=== PATIENT | male | born 1975 | race Caucasian/White ===

== ENCOUNTER 2018-06-05 09:52 | Outpatient (CLI) | payer BC | END 2018-06-05 09:53 | disposition home or self-care (01) | LOC: LAB.F 09:52 | PROVIDERS: ATTEND Registered Nurse | DX: E83.52 Hypercalcemia (principal) | CPT/HCPCS: 36415; 82310; 83970 ==

== ENCOUNTER 2019-07-23 13:36 | Outpatient (CLI) | payer BC ==
--- NOTE | 2019-07-23 16:51 | SLEEP CARE CONSULTATION ---
Information from patient questionnaire entered by Dilcia Berger. I have reviewed and concur with the information entered by Dilcia Berger. This document represents the service I personally performed and the decisions made by me, Kevin Schmitz MD, [facility]. History of Present Illness Reason for Visit: New patient Chief Complaint: reports: Snoring Duration of Symptoms: 7 months Usual bedtime: 12am Time it takes to fall asleep: 10-20 minutes Snores at night: Yes Observed to quit breathing while asleep: Yes Sleeps alone due to snoring: Yes Number of times waking at night: 0-1 Reasons for waking at night: reports: Bathroom Toss, Turn, or Twitch while sleeping: No Recalls having dreams: Yes Usually gets out of bed at: 0545 Feels refreshed in the morning: No Morning headache: Yes Sleepy or fatigued during the day: Yes Ever fallen asleep while driving: No Takes day naps: Yes Dreams during day naps: No Prior sleep studies: No Additional HPI information: I had the pleasure of seeing Mr. Andrade today regarding the possibility of him having a sleep disorder. As you know, he is a 44 year old gentleman who complains of loud snore for the past 7 months. He tried nasal spray and strip without much success. He has nasal congestion. His weight has not changed. The patient tells me that he normally goes to bed around midnight and it takes him approximately 10 - 20 minutes to fall asleep. He has not been observed to stop breathing in his sleep. His bed partner has to sleep in a separate room. He can recall waking up on the average of 0 - 1 time during the night. Most of the time he wakes up because of having to use the bathroom. However, he has awakened occasionally because of his own snoring, choking, and having to gasp for air. There is not a lot of tossing and turning in his sleep. No somniloquy (sleep talking) or somnambulism (sleep walking). Generally he can recall having dreams. In the morning he usually gets up out of the bed around 5:45 a.m. not feeling refreshed nor rested. He usually does have a morning headache that lasts just an hour. During the day he complains of feeling sleepy and fatigued. His score on [place] Sleepiness Scale is 15 out of 24. He has never fallen asleep while driving nor has had any accident due to sleepiness. He usually takes naps during the day. Upon falling asleep during the day he denies having vivid dreams. He has never had sleep paralysis, experienced cataplexy or symptoms of restless leg syndrome. He reports having impaired concentration during the day. Subjective Initial [place] Sleepiness Scale score: 15 Past Medical History Past Medical History: reports: Anxiety, Asthma, Depression Social History The patient's occupation is a [employer]. Patient is Domestic Partner and lives in [place]. Have you smoked in the past 12 months: No Alcohol use: Yes Alcohol amount and frequency: 1 glass/2 days Caffeine use: Yes Caffeine amount and frequency: 1-2 a day Family History Family history of sleep disordered breathing: Yes Family Hx Sleep Apnea: Grandparent: Snoring Allergies and Home Medications Drug allergies reviewed: Yes Home medication list reviewed: Yes Review of Systems Weight gain over past 5 years: 15 Cardiovascular: denies: high blood pressure, palpitations, chest pain, irregular heart rate or pulse, leg or foot swelling, have to sleep sitting up, other Respiratory: denies: shortness of breath, wheeze, sputum production, chronic cough, other Gastrointestinal: denies: heartburn, difficulty swallowing, nausea, vomitting, diarrhea, abdominal pain, other Urinary: denies: incontinence, frequency, urgency, impotence, other Neurological: reports: headaches Psychiatric: reports: anxiety, depression Ear/Nose/Throat: reports: wisdom teeth removed Endocrine: denies: thyroid disease, history of goiter, sluggishness, too hot or cold, excessive thirst, increased appetite, increased urination, unexplained weakness, other Musculoskeletal: denies: joint pain, neck pain, back pain, joint swelling, muscle pain or cramping, mobility problems, other Immunologic: reports: sneezing, itching, allergies to food or environment Physical Exam Vital signs obtained and entered by: Dr. Schmitz Blood Pressure: 116/64 Cuff size: regular Heart Rate: 67 O2 Saturation: 97 Height: 5 ft 8 in Weight: 165 lb Body Mass Index: 25.0 BMI Classification: Overweight Neck circumference: 15 Mood/affect: normal HEENT: No craniofacial malformation Nostrils: patent to airflow Turbinates: normal Septum: midline Mouth and throat: normal Soft palate: normal Hard palate: normal Uvula: normal Uvula visualization: 100% Mallampati Class I Tongue: normal in size Tonsils: small Chin and jaw: normal size and position Neck: normal w/o lymphadenopathy or thyromegaly Heart: regular rate and rhythm Lungs: clear bilaterally Abdomen: soft, non-tender Extremities: no edema or clubbing Neurologic: intact, no focal deficits Impression and Plan IMPRESSION: 1. Suspected Obstructive Sleep Apnea-Hypopnea Syndrome, as suggested by history of loud and irregular snoring, nocturnal choking, unrefreshed sleep, cognitive impairment, and daytime hypersomnolence. Pathophysiology of sleep-disordered breathing was discussed. I recommend proceeding to polysomnography to confirm the diagnosis and to assess severity. If he has significant sleep disordered breathing, a manual CPAP titration study will also be performed to find the optimal treatment pressure. However, because her insurance being [employer], a home sleep apnea test (HSAT) will be ordered (the insurance does not generally authorize an in-laboratory polysomnography). Plan: 1. Order a HSAT. 2. Avoid long distance driving or when feeling sleepy. 3. Avoid alcohol, sedative and muscle relaxant around bedtime. 4. Return for follow up after the test. I spent 100% of this 20 minute visit face to face with the patient with greater than 50% of this was spent time counseling the patient and coordination of care.
[2019-07-23 16:52] VITALS: BP 116/64
== END 2019-07-23 13:37 | disposition home or self-care (01) ==
LOC: SC 13:36
PROVIDERS: ATTEND Internal Medicine Pulmonary Disease
DX: G47.10 Hypersomnia, unspecified (principal); R06.83 Snoring; G47.8 Other sleep disorders; R41.89 Other symptoms and signs involving cognitive functions and awareness
CPT/HCPCS: 99203; 99212

== ENCOUNTER → 2019-07-31 | Outpatient (CLI) | payer BC | LOC: SC 19:30 | PROVIDERS: ATTEND Internal Medicine Pulmonary Disease | DX: G47.10 Hypersomnia, unspecified (principal); G47.00 Insomnia, unspecified | CPT/HCPCS: 95806 ==

== ENCOUNTER 2019-08-22 13:32 | Outpatient (CLI) | payer BC ==
[2019-08-22 15:05] VITALS: BP 90/56
--- NOTE | 2019-08-22 15:05 | SLEEP CARE CONSULTATION ---
Information from patient questionnaire entered by Bety Laurent. I have reviewed and concur with the information entered by Bety Laurent. This document represents the service I personally performed and the decisions made by me, Antonia Dudley, RN, MSN, CR[employer] COLLECTIONS MANAGER. History of Present Illness Initial [place] Sleepiness Scale score: 15 Current [place] Sleepiness Scale score: 13 Additional HPI information: LORE ROOT returns for follow up of the recently performed home sleep study HST and informed of the findings. He was informed that the test of inconclusive as time insufficient. Thus the patient explained how he struggled to sleep with the HST until the last night as described below. It appears the data obtained for this study results was only for the first night which patient confirmed on his cell. Patient did HST 3 nights. The first night, he was only able to use on for an hour as the nose piece uncomfortable and the chest strap kept coming off. Thus he fixed the chest strap with tape to keep in place the next day and tried it again. He also had to adjust the nostril piece so it was not poking his nose and he has to tape with his medical tape to keep in place. This time, he slept about 4 hours but the unit flashed red. So he called support and was told that it needed to record a minimum of 6 hours. So he tried again and he was able to successfully use it and sleep more than 6 hours and the unit flashed green. Since then he has found he can sleep better and his spouse does not wake him from snoring if he sleeps on his right side. Sleep Study - Polysomnography Polysomnography findings: Home sleep study results SLEEP TIME AND EFFICIENCY: The sleep study recording began at 12:21:04 AM and ended at 01:10:36 AM. Total recording time was 49.5 minutes. The total sleep time was 24.5 minutes. The sleep efficiency was 49.5 percent. The patient spent 10.7 minutes supine, and spent 13.9 minutes non-supine. The patients own estimate of sleep time was 6.00 hours. RESPIRATORY DATA: The AHI in this report is indexed to sleep time based on actigraphy. The AASM defines this as EVAN. The AHI on this type 3 Home Sleep Study may understate the AHI determined on a type 1 or 2 study, since EEG is not monitored resulting in the inability to score non-desaturating hypopneas. Based on 4% Calculation: The AHI4% calculation of 12.2 per hour of recording time was based on a total of 0 scored apneas and 5 scored hypopneas with 4% desaturations. Supine AHI4%: 28.2 per hour. Non-supine AHI4%: 0.0 per hour. Oxygen Summary: Patient's baseline O2 saturation was 97.4 %. The patient spent 0.1 minutes at an oxygen saturation less than 90%, and 0.0 minutes less than 85%. The desaturation index was 14.7 events per hour sleep time. The lowest saturation was 87.3 %. SNORING: The percent of the study time spent snoring was 0.2 %. The Snoring Count was 2 . The Snoring Index was 4.9 Patient Name: Lore Andrade Study Date: 07/31/2019 : 1975 Page 2 of 6 . PULSE RATE REVIEW: The mean heart rate was 51 beats per minute. The rate ranged from a low of 38 to a high of 77 beats per minute. DIAGNOSIS CODE: DIAGNOSIS CODE: suspected Obstructive Sleep Apnea (ICD-10 G47.30) Impression: The test quality is good but the test duration is inadequate. The patient slept in both supine and non-supine positions. There are few hypopneas. The pulse rate was within normal limits. Recommendation: Due to the insufficient test duration, the test is considered inconclusive. Repeating the test or ordering an in-laboratory polysomnography is recommended to further evaluate the patient for sleep- disordered breathing. Allergies and Home Medications Known drug allergies: No Home medication list reviewed: Yes (newly started antidepressant) Allergy and home medication list: Floxetine 10mg daily Brio inhaler daily Albuterol inhaler prn Review of Systems Review of systems same as previous: Yes Physical Exam Blood Pressure: 90/56 Cuff size: regular Heart Rate: 66 O2 Saturation: 98 Height: 5 ft 8 in Weight: 174 lb 12.8 oz Body Mass Index: 26.6 BMI Classification: Overweight Impression and Plan 1. SuspectedObstructive Sleep Apnea-Hypopnea Syndrome, noted as moderate , with lowest oxygen saturation of 87,3% of what little sleep was recorded on his home sleep study ( HST ) . The data we received was from the first night only which was only one hour so inconclusive. I checked with my staff and no other data was available. They placed a call to the HST company to see if the 3rd night data patient completed is available. If not, the study will need to be repeated. A polysomnography was offered, but patient prefers a home sleep study as he has difficulty sleeping in different environment. He feels he will be successful now that he knows how to make the study comfortable as done on the 3rd night he tried but no data currently available. * Repeat home sleep study. * Attempt to lose some weight. * Avoid alcohol consumption near bedtime. * The patient is again cautioned about driving until sleepiness completely resolves. * Return after repeat HST. I spent 100% of this 20 minute visit face to face with the patient with greater than 50% of this was spent time counseling the patient and coordination of care.
== END 2019-08-22 13:33 | disposition home or self-care (01) ==
LOC: SC 13:32
PROVIDERS: ATTEND Nurse Practitioner Family
DX: G47.10 Hypersomnia, unspecified (principal); G47.8 Other sleep disorders; R06.83 Snoring
CPT/HCPCS: 99212; 99213

== ENCOUNTER 2020-02-20 15:00 | Outpatient (CLI) | payer BC ==
--- NOTE | 2020-02-20 14:47 | SLEEP CARE CONSULTATION ---
Information from patient questionnaire entered by Bety Laurent. I have reviewed and concur with the information entered by Bety Laurent. This document represents the service I personally performed and the decisions made by me, Antonia Dudley, RN, MSN, WINDOW DECORATOR. History of Present Illness Service Date and Time: 02/20/2020 1400 Previous diagnosis: Moderate, Obstructive Sleep Apnea-Hypopnea Syndrome AHI: 10.3 (in 2019 and 12.2 in 2019) Reason for follow up: first compliance Equipment type: CPAP Equipment obtained from: [employer] (in [place]) Prior sleep studies: Yes Year and Where: 2019- [facility] Type of Sleep Study: Home sleep study CPAP Compliance Data - Data Reviewed with Patient Average duration of nightly device use: 1.9 Compliance rate %: 9.5 (84 days) Current pressure setting (cmH2O): 8-15 Humidity settin Heated hose settin Average residual AHI: 10.5 Average large leak: 1 min 7 sec Subjective Patient concerns: reports: mask discomfort (skin sensitivity and tried skin barriers ), air blowing in eyes (mouth would open with full face mask and blow in eyes ), mask leak noise, other (having difficulty with mask comfort - tried 2 styles - seemed to disturb sleep and hard to go back to sleep). denies: condensation in mask/hose, nasal congestion, dry mouth, nose, throat, epistaxis Observed to snore while using device: Yes (with full face mask until pressure increased ) Current pressure setting perceived as: comfortable On therapy, patient: reports: other (disturbing sleep and waking more tired with CPAP ) Initial [place] Sleepiness Scale score: 15 (in 2015) Allergies and Home Medications Home medication list reviewed: No (no changes ) Review of Systems Review of systems same as previous: Yes Physical Exam Height: 5 ft 8 in Weight: 171 lb Body Mass Index: 25.9 BMI Classification: Overweight Impression and Plan 1. Obstructive Sleep Apnea-Hypopnea Syndrome, mild , with poor treatment comp liance and inadequate apnea control. On CPAP therapy, the patient has more disrupted sleep. He was not able to find a mask comfortable to wear or that fit well. The pressure was comfortable after adjustment. Thus he and spouse felt this treatment was not working for either of them. Since then he has been trying to sleep on his side where his snoring is less so to reduce disruption to his spouses sleep. I reviewed other apnea treatment options such as positional therapy, losing weight and an advanced mandibular device ( oral appliance). Patient is overweight so some weight loss could reduce snoring which he is working on and since his apnea is primarily in supine position - positional therapy is an option. After some discussion, the patient would like to try the oral appliance. Until then he will avoid sleeping supine with pillow positioning or using a T shirt with tennis balls sewn in back. [facility] non PAP treatment patient education will be sent to patient as well as a list of accredited dentists and one non-accredited dentist in [facility] to call for a consult. A prescription will be sent to start process. Patient advised to check insurance to see if oral appliance is covered. I will have patient contact this office once he obtains his oral appliance to evaluate if reduction of symptoms and comfortable with treatment, a polysomnography / home sleep study will be ordered using the oral appliance to check efficacy of treatment. I again reviewed the patients home study results and rationale for treatment to reduce apnea, improve sleep quality and reduce cardiovascular and cerebrovascular events was reviewed. A stop CPAP prescrition therese be made and patient advised to contact [facility] on the process of returning his CPAP. * stop PAP prescription. * prescription for oral appliance * non PAP treatment pamphlet * Notify me if snoring with mask or feeling that the pressure is too much or too little * Attempt to lose weight * Call this office if any problems using CPAP * Return for follow up a couple of months after obtains oral appliance , or sooner if concerns arise Visit Type: Telehealth Phone (to reduce risk of Covid 19 exposure) Patient Location: Home Location of Provider: Home Patient agrees and consents to this telehealth visit type: Yes Patient agrees to have their insurance billed: Yes Time Spent with Patient (minutes): 17 Provider Statement: I spent 100% of the Telehealth Phone Call with the patient with greater than 50% spent counseling the patient and coordination of care.
== END 2020-02-20 15:01 | disposition home or self-care (01) ==
LOC: SC 15:00
PROVIDERS: ATTEND Nurse Practitioner Family
DX: G47.33 Obstructive sleep apnea (adult) (pediatric) (principal); E66.3 Overweight; Z68.25 Body mass index [BMI] 25.0-25.9, adult

== ENCOUNTER 2023-11-28 09:16 | Day surgery (SDC) | payer BC ==
[2023-11-28] MEDS: LACTATED RINGERS 1,000 ML IV ONE ×2 (09:20→12:01)
--- NOTE | 2023-11-28 10:25 | ANESTHESIA ---
Pre-Anesthesia VS, & Labs - Diagnosis screening - Procedure colonoscopy Vital Signs: Temp Pulse Resp BP Pulse Ox O2 Flow Rate 36 C L 74 16 124/72 99 11/28/23 09:24 11/28/23 09:24 11/28/23 09:24 11/28/23 09:24 11/28/23 09:24 Height: 5 ft 8 in Weight (kg): 83.2 kg Body Mass Index: 27.8 BMI Classification: Overweight - NPO >8 hours Home Medications and Allergies Home Medications: Ambulatory Orders Albuterol Sulf [Ventolin Hfa Inhaler] 1 - 2 puffs INH Q4HR PRN 11/25/23 Albuterol Sulf [Ventolin Hfa Inhaler] 1 - 2 puffs INH Q4HR PRN 11/25/23 Anes History & Medical History - Anesthetic History Anesthesia Complications: reports: No previous complications Family history of Anesthesia Complications: Denies Family history of Malignant Hyperthermia: Denies - Medical History Cardiovascular: reports: None Pulmonary: reports: Asthma Gastrointestinal: reports: Colon polyps Urinary: reports: Kidney stones Neuro: reports: None Musculoskeletal: reports: None Endocrine/Autoimmune: reports: None Skin: reports: None Smoking Status: Never smoker Psychosocial: reports: Alcohol - Surgical History General: reports: Colonoscopy Plan Anesthesia Type: General, Total IV Consent for Procedure(s) Verified and Reviewed: Yes Code Status: Attempt Resuscitation ASA classification: 2-Mild systemic disease Is this case an emergency?: No
[2023-11-28] MEDS ORDERED: PROPOFOL 500 MG/50 ML 500 MG/50 ML VIAL ONE (10:54)
[2023-11-28] MEDS ORDERED: fentaNYL 100 MCG/2 ML VIAL ONE (11:56)
[2023-11-28] MEDS ORDERED: PROPOFOL 200 MG/20 ML VIAL IVP ONE (11:56)
[2023-11-28] MEDS ORDERED: MIDAZOLAM 2 MG/2 ML VIAL ONE (11:56)
[2023-11-28 12:29] VITALS: BP 114/81; O2SAT 99
--- NOTE | 2023-11-28 14:37 | ANESTHESIA POST OP EVALUATION ---
Anesthesia Post Eval - Post Anesthesia Eval Vitals: Last Vital Signs Temp 36.4 C L 11/28/23 12:01 Pulse 63 11/28/23 12:20 Resp 18 11/28/23 12:20 BP 114/81 H 11/28/23 12:20 Pulse Ox 99 11/28/23 12:20 O2 Flow Rate CV Function Including HR & BP: Stable Pain Control: Satisfactory Nausea & Vomiting: Negative Mental Status: Baseline Respiratory Status: Airway Patent Hydration Status: Satisfactory Anesthesia Complications: None
== END 2023-11-28 09:17 | disposition home or self-care (01) ==
LOC: SDS 09:16
PROVIDERS: ATTEND Surgery
PROC: 0DBL8ZZ Excision of Transverse Colon, Via Natural or Artificial Opening Endoscopic (ICD-10-PCS; principal; 2023-11-28 10:45)
DX: R19.5 Other fecal abnormalities (principal); K63.5 Polyp of colon; K64.8 Other hemorrhoids; J45.909 Unspecified asthma, uncomplicated
CPT/HCPCS: 45385; J7120